=== PATIENT | male | born 1965 | race Caucasian/White ===

== ENCOUNTER 2017-08-06 02:05 | Emergency (ER) | payer BC ==
[2017-08-06 02:11] VITALS: BP 149/89
[2017-08-06] MEDS ORDERED: Ondansetron 4 MG Tab.DIS PO ONE (02:29)
[2017-08-06] MEDS ORDERED: Ketorolac 60 MG/2 ML SDV IM ONE (02:47)
--- NOTE | 2017-08-06 03:16 | EDM.PDOC ---
ED HPI GENERAL MEDICAL PROBLEM - General Chief Complaint: Back Pain or Injury Stated Complaint: bowel obstruction? Time Seen by Provider: 08/06/17 02:21 Source of Information: Reports: Patient History Limitations: Reports: No Limitations - History of Present Illness INITIAL COMMENTS - FREE TEXT/NARRATIVE: States that he was fine until about 2200 this evening when he developed left lower back pain. He denies any heavy lifting or injury in the last 24 hours. He denies any constipation stating he had 2 normal bowel movements today. No diarrhea. Has had some nausea. Has not taken anything for pain. States that he ate spaghetti for supper which he has not had many carbs for awhile and is wondering if that could be causing the pain. No vomiting with it. He initially took a hot shower and it did help the pain for a short time but it then came back again. No fever or chills noted. Denies any history of kidney stones or family history of kidney stones. Onset: Sudden Location: Reports: Back Quality: Reports: Stabbing Associated Symptoms: Reports: Nausea/Vomiting. Denies: Fever/Chills Left Lower Back Pain Score (Numeric/FACES): 10 - Related Data Allergies Allergy/AdvReac Type Severity Reaction Status Date / Time No Known Allergies Allergy Verified 08/06/17 02:11 Home Meds: Home Meds Phentermine/Topiramate [Qsymia 7.5 mg-46 mg Capsule] 1 tab PO DAILY 08/06/17 [ History] Testosterone Cypionate 200 mg SQ Q30D 08/06/17 [History] Past Medical History Musculoskeletal History: Reports: Back Pain, Chronic, Other (See Below) Other Musculoskeletal History: degenerative disc disease - Past Surgical History GI Surgical History: Reports: Appendectomy Musculoskeletal Surgical History: Reports: None Social & Family History - Family History Family Medical History: Noncontributory - Tobacco Use Smoking Status *Q: Former Smoker Years of Tobacco use: 30 Used Tobacco, but Quit: Yes Month Tobacco Last Used: 5yrs Second Hand Smoke Exposure: No - Recreational Drug Use Recreational Drug Use: No - Living Situation & Occupation Living situation: Reports: , with Family Occupation: Employed ED ROS GENERAL - Review of Systems Review Of Systems: See Below Constitutional: Denies: Fever, Chills HEENT: Reports: No Symptoms Respiratory: Reports: No Symptoms Cardiovascular: Reports: No Symptoms GI/Abdominal: Reports: Nausea. Denies: Constipation, Diarrhea, Vomiting : Denies: Dysuria, Frequency, Hematuria Musculoskeletal: Reports: Back Pain Skin: Reports: No Symptoms ED EXAM,LOWER BACK PAIN/INJURY - Physical Exam Exam: See Below Exam Limited By: No Limitations General Appearance: Alert, WD/WN, Moderate Distress Ears: Normal External Exam, Normal Canal Nose: Normal Inspection Throat/Mouth: Normal Inspection, Normal Oropharynx, No Airway Compromise Head: Atraumatic, Normocephalic Neck: Normal Inspection Respiratory/Chest: No Respiratory Distress, Lungs Clear, Normal Breath Sounds Cardiovascular: Regular Rate, Rhythm GI/Abdominal: Normal Bowel Sounds, Soft, Non-Tender, Other (No CVA tenderness noted.) Back Exam: Other (Pain is in the left lower flank pain. Pain does not change with movement or positioning. He does become nauseated when he moves around more.). No: CVA Tenderness (L), CVA Tenderness (R) Extremities: No Pedal Edema Neurological: Alert, Oriented x 3 Skin Exam: Warm, Dry, Intact Course - Vital Signs Last Recorded V/S: Last Vital Signs Temp 96.6 F 08/06/17 02:06 Pulse 61 08/06/17 02:06 Resp 20 08/06/17 02:06 BP 149/89 H 08/06/17 02:06 Pulse Ox 97 08/06/17 02:06 - Orders/Labs/Meds Orders: Active Orders 24 hr Category Date Time Status Abdomen Pelvis wo Cont [CT] Stat Exams 08/06/17 02:58 Taken Sodium Chloride 0.9% [Normal Saline] 1,000 ml Med 08/06/17 04:15 Active IV ASDIRECTED Medication Orders Sodium Chloride (Normal Saline) 1,000 mls @ 999 mls/hr IV ASDIRECTED EMILY Last Admin: 08/06/17 04:36 Dose: 999 mls/hr Labs: Laboratory Tests 08/06/17 08/06/17 08/06/17 Range/Units 02:26 02:40 02:40 WBC 13.6 H (5.0-10.0) 10^3/uL RBC 5.34 (4.50-6.00) 10^6/uL Hgb 15.6 (14.0-18.0) g/dL Hct 46.4 (40.0-54.0) % MCV 86.9 (82.0-94.0) fL MCH 29.2 (27.0-32.0) pg MCHC 33.6 (33.0-38.0) g/dL RDW Coeff of Woodrow 14.8 (11.0-15.0) % Plt Count 270 (150-400) 10^3/uL Neut % (Auto) 87.0 H (35-85) % Lymph % (Auto) 9.4 L (10-55) % Merrick % (Auto) 3.2 (0-16) % Eos % (Auto) 0.2 (0-5) % Baso % (Auto) 0.2 (0-3) % Neut # (Auto) 11.78 H (1.80-7.00) 10^3/uL Lymph # (Auto) 1.27 (1.00-4.80) 10^3/uL Merrick # (Auto) 0.44 (0.00-0.80) 10^3/uL Eos # (Auto) 0.03 (0.00-0.45) 10^3/uL Baso # (Auto) 0.03 10^3/uL Sodium 141 (136-145) mEq/L Potassium 4.5 (3.5-5.0) mEq/L Chloride 106 (98-106) mEq/L Carbon Dioxide 27 (21-32) mmol/L BUN 23 H D (7-18) mg/dL Creatinine 1.3 (0.7-1.3) mg/dL Est Cr Clr Drug Dosing 72.13 mL/min Estimated GFR (MDRD) 58 L (>=60) mL/min Glucose 167 H D (75-99) mg/dL Calcium 9.3 (8.4-10.1) mg/dL C-Reactive Protein 0.7 (0.2-0.8) mg/dL Urine Color Glory (YELLOW) Urine Appearance Cloudy (CLEAR) Urine pH 5.0 (4.5-8.0) Ur Specific W[place]rop >= 1.030 H (1.003-1.020) Urine Protein Trace H (NEGATIVE) mg/dL Urine Glucose (UA) Negative (NEGATIVE) mg/dL Urine Ketones Trace H (NEGATIVE) mg/dL Urine Occult Blood Large H (NEGATIVE) Urine Nitrite Negative (NEGATIVE) Urine Bilirubin Negative (NEGATIVE) Urine Urobilinogen 0.2 (0.2-1.0) EU/dL Ur Leukocyte Esterase Negative (NEGATIVE) Urine RBC Packed H (0-5) /HPF Urine WBC 0-5 (0-5) /HPF Ur Epithelial Cells Few H (NOT SEEN) /HPF Meds: Medications Generic Name Dose Route Start Last Admin Trade Name Freq PRN Reason Stop Dose Admin Sodium Chloride 1,000 mls @ 999 mls/hr 08/06/17 04:15 08/06/17 04:36 Normal Saline IV 999 mls/hr ASDIRECTED EMILY Administration Discontinued Medications Generic Name Dose Route Start Last Admin Trade Name Freq PRN Reason Stop Dose Admin Ketorolac Tromethamine 60 mg 08/06/17 02:47 08/06/17 02:50 Toradol IM 08/06/17 02:48 60 mg ONETIME ONE Administration Ondansetron HCl 4 mg 08/06/17 02:29 08/06/17 02:36 Zofran Odt PO 08/06/17 02:30 4 mg ONETIME ONE Administration Ondansetron HCl 4 mg 08/06/17 04:37 08/06/17 04:40 Zofran IVPUSH 08/06/17 04:38 4 mg ONETIME ONE Administration Ondansetron HCl Confirm 08/06/17 04:55 08/06/17 04:50 Zofran Administered 08/06/17 04:56 Not Given Dose 4 mg .ROUTE .STK-MED ONE Tamsulosin HCl 0.4 mg 08/06/17 04:03 08/06/17 04:36 Flomax PO 08/06/17 04:04 0.4 mg ONETIME ONE Administration - Re-Assessments/Exams Free Text/Narrative Re-Assessment/Exam: 08/06/17 03:15 Discussed the blood in urine. Will get CT to rule out kidney stone. 08/06/17 [id number] received call from radiologist with results of CT scan. 4mm stone in left ureter. Will push fluids orally and IV, give flomax and pain meds for the next couple of hours to get stone to pass and then recheck. 08/06/17 06:03 Fluids are infused. His pain has improved but not gone. He has some nausea but less. Discussed that I will discharge him and he needs to drink fluids and can use zofran for any nausea and Toradol for any pain. If pain does not resolve then would need to return. Departure - Departure Time of Disposition: 06:09 Disposition: Home, Self-Care 01 Condition: Good Clinical Impression: Left nephrolithiasis - Discharge Information Instructions: Kidney Stones, [id number] Referrals: Janiya Gauthier PA-C [Primary Care Provider] - Forms: ED Department Discharge Additional Instructions: Push fluids- at least 100ml daily until pain is gone stop the qsymia Zofran as needed for nausea Toradol as needed for pain Flomax daily for 1 week Recheck if pain doesn't resolve by - Problem List & Annotations (1) Left nephrolithiasis SNOMED Code(s): 06873480 Code(s): N20.0 - CALCULUS OF KIDNEY Status: Acute Priority: High Current Visit: Yes - Problem List Review Problem List Initiated/Reviewed/Updated: Yes - My Orders Last 24 Hours: My Active Orders 08/06/17 02:58 Abdomen Pelvis wo Cont [CT] Stat 08/06/17 04:15 Sodium Chloride 0.9% [Normal Saline] 1,000 ml IV ASDIRECTED - Assessment/Plan Last 24 Hours: My Active Orders 08/06/17 02:58 Abdomen Pelvis wo Cont [CT] Stat 08/06/17 04:15 Sodium Chloride 0.9% [Normal Saline] 1,000 ml IV ASDIRECTED
[2017-08-06] MEDS ORDERED: Tamsulosin 0.4 MG Cap.ER PO ONE (04:03)
[2017-08-06] MEDS ORDERED: Sodium Chloride 0.9% 1,000 ML IV SCH (04:15)
[2017-08-06] MEDS ORDERED: Ondansetron 4 MG/2 ML SDV IVPUSH ONE (04:37)
[2017-08-06] MEDS ORDERED: Ondansetron 4 MG/2 ML SDV ONE (04:55)
[2017-08-06] MEDS ORDERED: Ketorolac 30 MG/ML SDV IVPUSH ONE (06:20)
== END 2017-08-06 06:52 | disposition home or self-care (01) ==
LOC: CC.ED 02:05
DX: N13.2 Hydronephrosis with renal and ureteral calculous obstruction (principal); Z79.899 Other long term (current) drug therapy; Z87.891 Personal history of nicotine dependence
CPT/HCPCS: 36415; 74176; 80048; 81001; 85025; 86140; 96361; 96372; 96374; 96375; 99284; A9270-GY; J1885; J2405; J7030